=== PATIENT | female | born 1935 | race Caucasian/White ===

== ENCOUNTER 2016-11-26 08:01 | Day surgery (SDC) | payer MEDICARE, OTHER ==
--- NOTE | ~2016-11-26 | EGD ---
EGD REPORT [facility] [address] [address] NAME: WENDY GUALLPA : 39 STATUS : REG [facility]#: [id number] AGE: 81 ADM/REG DATE : 11/26/16 MR#: [id number] REPORT SERV DATE: 11/26/16 DICTATED BY: LAWRENCE ANSARI DATE: 11/26/16 REPORT STATUS : Draft [facility]ANSCRIBED BY: [facility] DATE: 11/26/16 [facility] Center Patient Name: Wendy Guallpa Date of : 1935 Attending MD: LAWRENCE ANSARI MD Procedure Date No Time: 11/26/2016 Procedure: Upper GI endoscopy Indications: Dysphagia, Gastro-esophageal reflux disease Referring MD: JOHNIE SHIELDS MD Medicines: Propofol per Anesthesia Complications: No immediate complications. Procedure: Pre-Anesthesia Assessment: - ASA Grade Assessment: III - A patient with severe systemic disease. After obtaining informed consent, the endoscope was passed under direct vision. Throughout the procedure, the patient's blood pressure, pulse, and oxygen saturations were monitored continuously. The GIF [id number] was introduced through the mouth, and advanced to the third part of duodenum. The upper GI endoscopy was accomplished without difficulty. The patient tolerated the procedure well. Findings: Non-severe esophagitis with no bleeding was found in the entire esophagus. A benign-appearing, intrinsic mild stenosis was found in the upper third of the esophagus and was traversed. A guidewire was placed and the scope was withdrawn. Dilation was performed with a Savary dilator with mild resistance at 60 Fr. The esophagus looked satisfactory post dilation A benign-appearing, intrinsic mild stenosis was found at the gastroesophageal junction and was traversed. A guidewire was placed and the scope was withdrawn. Dilation was performed with a Savary dilator with mild resistance at 60 Fr. The esophagus looked satisfactory post dilation A small hiatus hernia was present. Seen on retroflexion, done prior to dilation Diffuse mild inflammation characterized by congestion (edema) and erythema was found in the entire examined stomach. Biopsies were taken with a cold forceps for Helicobacter pylori testing. Localized mild inflammation characterized by congestion (edema) and erythema was found in the duodenal bulb. The 2nd part of the duodenum and 3rd part of the duodenum were normal. Impression: - Non-severe esophagitis. EGD REPORT [address] [place]. [address] NAME: WENDY GUALLPA : 39 STATUS : REG [facility]#: [id number] AGE: 81 ADM/REG DATE : 11/26/16 MR#: [id number] REPORT SERV DATE: 11/26/16 DICTATED BY: LAWRENCE ANSARI DATE: 11/26/16 REPORT STATUS : Draft TRANSCRIBED BY: [email or web address] DATE: 11/26/16 - Benign-appearing esophageal stricture. Dilated. - Benign-appearing esophageal stricture. Dilated. - Hiatus hernia. - Gastritis. Biopsied. - Duodenitis. - Normal 2nd part of the duodenum and 3rd part of the duodenum. Recommendation: - Patient has a contact number available for emergencies. The signs and symptoms of potential delayed complications were discussed with the patient. Return to normal activities tomorrow. Written discharge instructions were provided to the patient. - diet is clear liquid today, full liquid tomorrow, soft mushy food the next day, and resume usual diet the day after that. - Continue present medications. - Await pathology results. - Return to my office as previously scheduled. - Discharge patient to home. Procedure Code(s): --- Professional --- 07253, Esophagogastroduodenoscopy, flexible, transoral; with insertion of guide wire followed by passage of dilator(s) through esophagus over guide wire 07837, Esophagogastroduodenoscopy, flexible, transoral; with biopsy, single or multiple Diagnosis Code(s): --- Professional --- K20.9, Esophagitis, unspecified K22.2, Esophageal obstruction K44.9, Diaphragmatic hernia without obstruction or gangrene K29.70, Gastritis, unspecified, without bleeding K29.80, Duodenitis without bleeding R13.10, Dysphagia, unspecified K21.9, Gastro-esophageal reflux disease without esophagitis CPT copyright 2013 [employer]. All rights reserved. The codes documented in this report are preliminary and upon welder fitter review may be revised to meet current compliance requirements. Lawrence Ansari MD EGD REPORT [facility] [address] [place] [address] NAME: WENDY GUALLPA : 39 STATUS : [place] [facility]#: [id number] AGE: 81 ADM/REG DATE : 11/26/16 MR#: [id number] REPORT SERV DATE: 11/26/16 DICTATED BY: LAWRENCE ANSARI DATE: 11/26/16 REPORT STATUS : Draft TRANSCRIBED BY: [email or web address] DATE: 11/26/16 LAWRENCE ANSARI MD 11/26/2016 10:48 AM This report has been signed electronically. Number of Addenda: 0 Note Initiated On: 11/26/2016 10:10 AM Scope Withdrawal Time 0 hours 0 minutes 0 seconds [facility] [place] [address]
[~2016-11-26 08:01] MED LIST: C5 PO; COUMADIN4 MG; COUMADIN4 MG PO; L20 PO; LOP50 PO; NORV5 PO; PRAV10 PO; PRILO PO; PRIN2.5 PO; RANITIDINE300 MG PO; REG PO; RYTHMOL225 MG PO; SUCR PO; TOPXL50 PO; ZANTAC150 MG PO
[2016-11-26 08:31] LABS: INTERNATIONAL NORMAL RATI 1.2 UNITS (-); PROTIME (NOT ORD) 15.4 SEC (12.0-14.5)
== END 2016-11-26 23:59 | disposition home or self-care (01) ==
LOC: DMU 08:01
PROVIDERS: Anesthesiology; Internal Medicine Gastroenterology
PROC: 0D758ZZ Dilation of Esophagus, Via Natural or Artificial Opening Endoscopic (ICD-10-PCS; principal; 2016-11-26 09:00)
PROC: 0DB68ZX Excision of Stomach, Via Natural or Artificial Opening Endoscopic, Diagnostic (ICD-10-PCS; 2016-11-26 09:00)
DX: K22.2 Esophageal obstruction (principal); K44.9 Diaphragmatic hernia without obstruction or gangrene; K29.70 Gastritis, unspecified, without bleeding; K29.80 Duodenitis without bleeding; K21.0 Gastro-esophageal reflux disease with esophagitis; I48.91 Unspecified atrial fibrillation; I10 Essential (primary) hypertension; G47.30 Sleep apnea, unspecified; G47.33 Obstructive sleep apnea (adult) (pediatric); Z88.5 Allergy status to narcotic agent
CPT/HCPCS: 85610; 88305